=== PATIENT | male | born 1995 | race Caucasian/White ===

== ENCOUNTER 2016-12-13 19:32 | Emergency (ER) | payer BC ==
[~2016-12-13] VITALS: Ht 172.7 cm; Wt 80.2 kg
[~2016-12-13 19:32] MED LIST: SERT-234 PO
[2016-12-13 19:45] VITALS: TEMP 37; Ht 172.7 cm; Wt 80.2 kg
[2016-12-13 21:32] VITALS: BP 165/84; PULSE 78; O2SAT 98
--- NOTE | 2016-12-13 21:52 | EMERGENCY ROOM VISIT NOTE ---
History First contact with patient: 20:10 Chief Complaint: ALLERGIC REACTION Stated Complaint: R EYE SWOLLEN SHUT History of Present Illness The patient is a 21 year old male who presents to the Emergency Room via private vehicle with complaints of "right eye swollen shut". The patient states that he notes that he has many seasonal allergies, and was cleaning up around his place of residence when he notes that he began sneezing, and then his right eye became itchy therefore he rubbed the eye and it began to swell. He states that he continued to rub the eye and then it began to swell shut. He states that his vision is slightly blurry in the right eye. He notes that he has never had an eye swelling this bad before in the past. He notes that from the time that the eye began to itch to the point that it swelled up was 10 minutes. He rates his pain around the right eye as a 7/10. He denies any trouble breathing, trouble swallowing, chest pain, shortness of breath, fevers or chills. Review of Systems A complete 10-point Review of Systems was discussed with the patient, with pertinent positives and negatives listed in the History of Present Illness. All remaining Review of Systems questions can be considered negative unless otherwise specified. Past Medical/Surgical History Medical Problems: (1) Asthma, Unspecified (2) Esophageal Reflux Family History Cancer Heart disease Hypertension Kidney disease Kidney stones Social History Smoking Status: Never Smoker Alcohol Use: none Marital Status: single Housing Status: lives alone Occupation Status: [employer] student Current/Historical Medications No Active Prescriptions or Reported Meds Allergies Coded Allergies: Tetracycline (Verified Allergy, Severe, ANAPHYLAXIS, 12/13/16) Physical Exam Vital Signs Date Time Temp Pulse Resp B/P Pulse Ox O2 Delivery O2 Flow Rate FiO2 12/13/16 21:32 78 16 165/84 98 Room Air 12/13/16 19:48 97 Room Air 12/13/16 19:45 37.0 88 20 164/93 98 Room Air Right Eye Acuity: 20/30 WITHOUT CORRECTIVE LENSES Left Eye Acuity: 20/20 WITHOUT CORRECTIVE LENSES Physical Exam VITAL SIGNS - Vital signs and nursing notes were reviewed. GENERAL -21-year-old male appearing his stated age. Communicates well with provider and answers questions appropriately. HEAD - Normocephalic, Atraumatic. No Conteh's Sign or Raccoon's Eyes. No depressed skull fractures palpable. EYES - PERRL with EOMI bilaterally. Sclera of the right eye without noticeable foreign body or excoriations. Bulbar conjunctival injection noted in the right eye. There is evidence of chemosis in the right eye. Right eye Without subconjunctival hemorrhage. Palpebral conjunctiva pink and moist with no injection or discharge noted. Brief fundoscopic exam demonstrates no AV-nicking , cotton wool spots, or flame hemorrhages. Slit lamp examination performed as further described. EARS - No deformities of external structures noted on gross examination bilaterally. NOSE - Midline and without cyanosis. Without discharge. MOUTH/OROPHARYNX - Without perioral cyanosis. Tongue midline with equal elevation of palate bilaterally. No tonsillar hypertrophy, erythema, or exudates noted. Fair dentition noted. No airway or mouth involvement. NECK - FROM assessed. No cervical lymphadenopathy noted. Slit Lamp Examination was performed of the right eye(s). Alcaine drops were applied to the affected eye(s) for proper anesthetization. The affected eye(s) were stained with Fluorescein stain to precipitate adequate visualization of any conjunctival/scleral excoriations or ulcers. The patient's face was comfortably rested on the chin guard of the slit lamp apparatus. The lights were dimmed and the affected eye(s) were thoroughly examined under microscopy using the blue light. No uptake was present in the right eye. Additionally, the eye(s) were examined under microscopy using the regular light. Close examination revealed unremarkable. Patient tolerated the procedure well and no complications were met. Medical Decision & Procedures Medications Administered Medications (Trade) Dose Ordered Sig/Amanda Route Start Time Stop Time Status Last Admin Dose Admin Diphenhydramine HCl (Benadryl Cap) 25 mg NOW STAT PO 12/13/16 20:19 12/13/16 20:22 DC 12/13/16 20:19 25 MG Medical Decision Patient was seen and evaluated as above. The patient's presentation is consistent with that of a likely localized allergic reaction, with irritation of the right eye secondary to digital trauma with the patient repeatedly rub the eye. There was a chemotic reaction in the right eye. There was no evidence of corneal abrasion, ulceration or glaucoma at this time. Visual acuity was assessed prior to inspection. No significant visual acuity abnormality. Patient was given 25 mg of Benadryl by mouth as well as an ice pack which she applied to the eye. He was reassessed and chemotic reaction diminished. He was then better able to open his eye. Initially the right eye was swollen shut, but upon reassessment the swelling had gone down as did the chemotic reaction. The eye was stained then thoroughly irrigated. There was no other evidence of allergic reaction throughout the body. I do believe the patient is stable for discharge. If the patient worsens he is to return, if the eye irritation persists he is to follow-up with ophthalmology of which number was provided by him calling first thing tomorrow morning to schedule appointment, and if it disappears she is a follow-up with [facility]. He was educated upon management today symptoms, was educated upon worrisome symptoms in which to return, had questions prior to discharge, and was discharged home in good condition. I suspect the patient's eye pain and edema is likely secondary to allergies, and when the patient rub the eye suspect that there was a localized chemotic reaction followed by eyelid edema. No other evidence for emergent or surgical process. In the evaluation and treatment of this patient, the following differential diagnoses were considered: Corneal Abrasion, Conjunctivitis, Eye Contusion, Globe Injury, Orbital Floor Injury (Blowout Fracture), Corneal Ulcer, Keratitis , Herpes Zoster Opthalmic, Blepharitis, Orbital Cellulitis, Iritis, Scleritis/ Episcleritis, Uveitis, Temporal Arteritis, Subconjunctival Hemorrhage. Impression Primary Impression: Allergic reaction Additional Impression: Irritation of right eye Departure Information Dispostion Home / Self-Care Condition GOOD Prescriptions No Active Prescriptions or Reported Meds Referrals No Doctor, Assigned (PCP) Isaiah Ireland D.O. Patient Instructions My [facility] Additional Instructions You have been treated in the Emergency Department for an Allergic Reaction and right eye irritation. You have been treated and monitored in the Emergency Department appropriately. You should take Benadryl (diphenhydramine) 25 mg orally every 4-6 hours for the next 5-7 days. This medication is kzoz-vho-ogizkva and you will NOT need a prescription to purchase this at your local pharmacy. You should continue taking the Benadryl for the COMPLETION of the 5-7 days. This is to prevent a rebound allergic reaction in the event that allergens are still present in your system. As with every Emergency Department visit, you should follow-up with your primary care provider in 2-3 days for reevaluation. Please use the cold compresses/ice to the eye 5-6 times per day for about 10 minutes each time. Please be careful to not allow the ice directly touch the eye. It is recommended you use an vchp-pom-ddscvbv antihistamine in addition to the Benadryl such as Zantac or Claritin. Please take these as directed. If your condition would improve, please follow-up with [facility] in the next 2-3 days. If your condition would persist it is recommended you follow-up with the medical logistics specialist, Dr. Ireland. If your eye would worsen in anyway or develop any new/concerning symptoms please return to the emergency Department immediately. Return to the Emergency Department if your current symptoms worsen despite treatment course outlined above, or if you develop any of the following symptoms : wheezing, tongue or face swelling, tightness in your throat, shortness of breath, or fainting. Please return to the emergency Department immediately. Problem Qualifiers
== END 2016-12-13 21:58 | disposition home or self-care (01) ==
LOC: C.EDB 19:33 → C.EDD 21:58
DX: T78.40XA Allergy, unspecified, initial encounter (principal); X58.XXXA Exposure to other specified factors, initial encounter; H57.8 Other specified disorders of eye and adnexa; K21.9 Gastro-esophageal reflux disease without esophagitis; J45.909 Unspecified asthma, uncomplicated; Z88.8 Allergy status to other drugs, medicaments and biological substances; Z80.9 Family history of malignant neoplasm, unspecified; Z82.49 Family history of ischemic heart disease and other diseases of the circulatory system; Z84.1 Family history of disorders of kidney and ureter

== ENCOUNTER 2017-05-25 20:03 | Emergency (ER) | payer BC ==
[~2017-05-25] VITALS: Ht 175.3 cm; Wt 81.0 kg
[2017-05-25 20:10] VITALS: TEMP 37; Ht 175.3 cm; Wt 81.0 kg
[2017-05-25 20:41] VITALS: O2SAT 99
--- NOTE | 2017-05-25 23:20 | EMERGENCY ROOM VISIT NOTE ---
History First contact with patient: 20:18 Chief Complaint: ALLERGIC REACTION Stated Complaint: ALLERGIC REACTION Nursing Triage Summary: Patient arrived via EMS from [facility]. EMS reports patient was at [facility] following a bee sting to r hand. Patient had anaphylaxis occur following sting with sob, swlling to lips and hand. Patient given epi, benadryl and solumedrol. Patient has history of ventricular bigemeny that he is scheduled to have a procedure for this summer. Patient voices no complaints at this time. History of Present Illness The patient is a 22 year old male who presents to the Emergency Room with complaints of anaphylactic reaction to a bee sting that occurred about 30 minutes ago. The patient states that he was on campus at [facility] when a bee stung into the base of his right thumb. The patient began having swelling of his lips and throat, and went to an urgent care clinic. The patient was diagnosed with anaphylaxis. IV access was established and the patient was given epinephrine, Benadryl, and Solu-Medrol prehospital. He was transported via ambulance to this facility. The patient has a history of anaphylaxis in the past secondary to peanut allergies. He does have an EpiPen at home, but this occurred so quickly he did not have a chance to use at home. The patient currently is feeling much better after treatment. His lips are feeling normal and he is not having significant breathing problems. The patient is having some palpitations, and evidently has a well-established history of ventricular bigeminy where he is scheduled for an ablation next month. The patient is not having chest pain. He rates his current discomfort a 2/10. Review of Systems More than 10 systems were reviewed and otherwise negative with the exception of history of present illness. Past Medical/Surgical History Medical Problems: (1) Asthma, Unspecified (2) Esophageal Reflux Family History Cancer Heart disease Hypertension Kidney disease Kidney stones Social History Smoking Status: Never Smoker Alcohol Use: none Marital Status: single Housing Status: lives alone Occupation Status: [employer] student Current/Historical Medications Scheduled Prednisone (Prednisone), 50 MG PO DAILY Physical Exam Vital Signs Date Time Temp Pulse Resp B/P (MAP) Pulse Ox O2 Delivery O2 Flow Rate FiO2 05/26/17 00:22 90 18 126/73 97 05/26/17 00:20 89 05/25/17 21:37 87 15 157/69 95 Room Air 8/30/17 20:41 99 Room Air 05/25/17 20:17 94 05/25/17 20:10 37.0 99 20 157/90 99 Room Air 05/25/17 20:10 99 Room Air Physical Exam VITALS: Vitals are noted on the nurse's note and reviewed by myself. Vital signs with tachycardia GENERAL: Well-developed, well-nourished, white male, who is in no acute distress and resting comfortably. Patient is cooperative with the examination. HEAD: Normocephalic atraumatic. EARS: External ear normal. External auditory canals clear, tympanic membranes pearly yoo without erythema or effusion bilaterally. EYES: Pupils equal round and reactive to light and accommodation. Conjunctivae without injection, sclerae without icterus. Extraocular movements intact. NOSE: Patent, turbinates without inflammation or discharge. MOUTH: Mucous membranes moist. Tonsils are not enlarged. Pharynx without erythema, blood, or exudate. Uvula midline. Airway patent. NECK: Supple without nuchal rigidity. No lymphadenopathy. No thyromegaly. Cervical spine is nontender. HEART: Tachycardic rate with frequent PVCs LUNGS: Clear to auscultation bilaterally without wheezes, rales or rhonchi. No retractions or accessory muscle use. SKIN: The skin was without rashes, erythema, edema, or bruising. Capillary reflex less than 2 seconds. Medical Decision & Procedures ED Course Physical exam and history were performed. Nursing notes, EMR, and Medication List were personally reviewed. Patient appears to have been stung by a bee and subsequently developed symptoms of anaphylaxis. The patient's symptoms have been ongoing for roughly 30-45 minutes upon his presentation to the department. He has been given epinephrine , slight Medrol, and Benadryl. He appears to be significantly improved. He does not have evidence of angioedema or airway compromise. The patient was placed on the nurse monitoring and will be observed here in the department for several hours. I did discuss the episode with the patient's parents at his request. Evidently the family lives in [place], and they will be driving here to pick him up. As the patient was given epinephrine he will need to be monitored for several hours here in the department. Patient remained in stable condition until the time of shift change. The patient case was discussed with Sylvia Larsen PA-C who will assume care at this time. Please see Ms. Larsen's dictation for further patient course, plan, and disposition. The chart was completed utilizing [employer] Speech Voice Recognition Software. Grammatical errors, random word insertions, pronoun errors, and incomplete sentences are an occasional consequence of this system due to software limitations, ambient noise, and hardware issues. Any formal questions or concerns about the content, text, or information contained within the body of this dictation should be directly addressed to the provider for clarification. . Medical Decision Differential diagnosis: Etiologies such as allergic reaction, anaphylaxis, urticaria, Augustin-Lennox syndrome, toxic epidermal necrolysis, erythema multiforme, cellulitis, as well as others were entertained. Impression Primary Impression: Bee sting-induced anaphylaxis Departure Information Prescriptions Prednisone (Prednisone) 50 Mg Tab 50 MG PO DAILY for 4 Days, #4 TAB Prov: Parker Barber PA-C 05/25/17 Referrals No Doctor, Assigned (PCP) Patient Instructions My [facility] Problem Qualifiers Primary Impression: Bee sting-induced anaphylaxis Encounter type: initial encounter Injury intent: accidental or unintentional Qualified Codes: T63.441A - Toxic effect of venom of bees, accidental (unintentional), initial encounter
[2017-05-25] MEDS ORDERED: PRED50TA PO (23:21)
[2017-05-26 00:22] VITALS: BP 126/73; PULSE 90; O2SAT 97
--- NOTE | 2017-05-26 04:33 | EMERGENCY ROOM VISIT NOTE ---
ED Visit Note First contact with patient: 22:30 Care of this patient was signed out to me at change of shift by Parker Decker. Please see his dictation for full details of this patient's ED visit. At this time, the patient was being monitored after receiving epinephrine for an anaphylactic reaction. The patient has a history of PVCs and bigeminy and has an ablation scheduled. At the time of my evaluation, the patient was resting in no acute distress with no complaints. Exam revealed no rashes. The patient has no difficulty breathing or swallowing. The patient was requesting to be discharged home and I do feel this is reasonable, as the patient has been observed for approximately 4 hours with no development of any symptoms. Discharge instructions were again reviewed with the patient. He has an EpiPen at home and was instructed to carry this with him at all times. He verbalized understanding of my assessment and treatment plan and was discharged home in good condition.
== END 2017-05-26 00:25 | disposition home or self-care (01) ==
LOC: EDBD 20:03 → C.EDC 20:09
DX: T63.441A Toxic effect of venom of bees, accidental (unintentional), initial encounter (principal); J45.909 Unspecified asthma, uncomplicated; K21.9 Gastro-esophageal reflux disease without esophagitis; Z80.9 Family history of malignant neoplasm, unspecified; Z82.49 Family history of ischemic heart disease and other diseases of the circulatory system; Z84.1 Family history of disorders of kidney and ureter

== ENCOUNTER 2017-12-19 22:52 | Emergency (ER) | payer BC ==
[~2017-12-19] VITALS: Ht 175.3 cm; Wt 80.1 kg
[2017-12-19 22:53] VITALS: TEMP 36.7; Ht 175.3 cm; Wt 80.1 kg
[2017-12-19 23:28] VITALS: BP 138/71; PULSE 45; O2SAT 97
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
== END 2017-12-19 23:29 | disposition home or self-care (01) ==
LOC: C.EDB 22:53
DX: S02.2XXD Fracture of nasal bones, subsequent encounter for fracture with routine healing (principal); S09.90XD Unspecified injury of head, subsequent encounter; Y93.83 Activity, rough housing and horseplay; W50.0XXA Accidental hit or strike by another person, initial encounter; J45.909 Unspecified asthma, uncomplicated; K21.9 Gastro-esophageal reflux disease without esophagitis; Z80.9 Family history of malignant neoplasm, unspecified; Z82.49 Family history of ischemic heart disease and other diseases of the circulatory system; Z84.1 Family history of disorders of kidney and ureter